=== PATIENT | male | born 1990 | race Hispanic/Latino ===

== ENCOUNTER 2021-04-06 23:49 | Emergency (ER) | payer OTHER ==
[~2021-04-06] VITALS: Ht 162.6 cm; Wt 71.4 kg
[2021-04-07] MEDS ORDERED: LIDOCAINE 1% MDV 20ML VIAL SC ONE (01:15)
[2021-04-07] MEDS ORDERED: CEPH500C PO (01:40)
[2021-04-07 01:45] VITALS: BP 124/83
[2021-04-07] MEDS ORDERED: IBUPROFEN 600MG TAB PO ONE (01:45)
[2021-04-07] MEDS ORDERED: CEPHALEXIN 500 MG CAP PO ONE (01:45)
== END 2021-04-07 02:04 | disposition home or self-care (01) ==
LOC: M ED 23:49 → EEVIPCON 23:49 → M ED 04-07 02:04
DX: L60.0 Ingrowing nail (principal)